=== PATIENT | male | born 1945 | race Caucasian/White ===

== ENCOUNTER 2019-06-06 18:46 | Inpatient (IN) | payer MEDICARE, MEDICAID ==
[~2019-06-06] VITALS: Ht 162.6 cm; Wt 77.5 kg
--- NOTE | 2019-06-06 20:26 | NUR ---
RECEIVED REPORT FROM PANTERA KISER, ASSUMING CARE NOW. AWAITING LAB DRAW AND RESULTS AT THIS TIME
[2019-06-06 20:51] LABS: ALANINE AMINOTRANSFERASE 27 U/L (12-78); ALBUMIN 3.4 g/dL (3.4-5.0); ANION GAP 5 mmol/L (5-15); BASOPHILS # (AUTO) 0.03 x10^3/uL (0-0.1); BASOPHILS % (AUTO) 0 % (0-1); CALCIUM 9.1 mg/dL (8.5-10.1); CHLORIDE 107 mmol/L (98-107); CREATININE 0.99 mg/dL (0.7-1.3); EOSINOPHILS # (AUTO) 0.09 x10^3/uL (0-0.4); EOSINOPHILS % (AUTO) 1 % (1-7); LYMPHOCYTES # (AUTO) 1.71 x10^3/uL (1-3.4); LYMPHOCYTES % (AUTO) 15 % (22-44); MD NO; MEAN CORPUSCULAR HEMOGLOBIN 30.4 pg (27.5-34.5); MEAN CORPUSCULAR HGB CONC 33.4 g/dL (33.2-36.2); MEAN CORPUSCULAR VOLUME 91.1 fL (81-97); MEAN PLATELET VOLUME 8.9 fL (7.4-10.4); MONOCYTES # (AUTO) 0.74 x10^3/uL (0.2-0.8); MONOCYTES % (AUTO) 7 % (2-9); NEUTROPHILS # (AUTO) 8.51 x10^3/uL (1.8-6.8); NEUTROPHILS % (AUTO) 77 % (42-75); PLATELET COUNT 292 x10^3/uL (130-400); RED BLOOD COUNT 5.97 x10^6/uL (4.38-5.82); RED CELL DISTRIBUTION WIDTH 15.3 % (9.4-14.8)
[2019-06-06 20:55] LABS: ALKALINE PHOSPHATASE 128 U/L (45-117); BILIRUBIN,TOTAL 0.8 mg/dL (0.2-1.0); TOTAL PROTEIN 7.3 g/dL (6.4-8.2)
--- NOTE | 2019-06-06 20:57 | NUR ---
PA AT BEDSIDE FOR ASSESSMENT
[2019-06-06] MEDS ORDERED: METHOCARBAMOL 750 MG TABLET ONE (21:17)
--- NOTE | 2019-06-06 21:29 | NUR ---
PT MEDICATED PER MAR. AWAITING DISPO AT THIS TIME. VSS. CALL LIGHT WITHIN REACH
[2019-06-06] MEDS ORDERED: METHOCARBAMOL 750 MG TABLET PO ONE (21:30)
[2019-06-06] MEDS ORDERED: CEFTRIAXONE PMX 1GM/50ML 50 ML IVPB ONE (22:30)
[2019-06-06] MEDS ORDERED: VANCOMYCIN PER PHARMACY MC ONE (22:30)
[2019-06-06] MEDS ORDERED: [UNRECOGNIZED DRUG - REMARK] MC SCH (23:00)
[2019-06-06] MEDS ORDERED: CEFTRIAXONE PMX 1GM/50ML 50 ML ONE (23:01)
--- NOTE | 2019-06-06 23:04 | NUR ---
ABX STARTED, VERIFED WITH PA THAT NO BLOOD CULTURES NEEDED PRIOR TO ADMIN. REPORT GIVEN TO PANTERA KISER
--- NOTE | 2019-06-06 23:08 | NUR ---
Received report from [id number] patient care.
[2019-06-06] MEDS ORDERED: MORPHINE SULFATE 4 MG/ML, 1ML IVPush PRN (23:30)
[2019-06-06] MEDS ORDERED: PLEASE ENTER WEIGHT MC SCH (23:30)
[2019-06-06] MEDS ORDERED: ONDANSETRON 2MG/ML, 2ML IVPush PRN (23:30)
[2019-06-06] MEDS ORDERED: VANCOMYCIN 1,600 MG in SODIUM CHLORIDE 0.9% 250 ML IV ONE (23:30)
--- NOTE | 2019-06-06 23:58 | NUR ---
RN called report to medical RN Jyoti. Reviewed patients current complaint of increased swelling and redness in legs bilaterally. Reviewed patients history of reduced mobility in lower extremeties from history of Polio. Also reviewed interventions performed in the Emergency Room including initiation of peripheral intravenous access, and antibiotics completed in the emergency room. Plan of care for further antiobiotics reviewed and also reviewed orders received to bypass blood cultures due to pertinent white blood cell count of (11.1)
[2019-06-07 00:19] VITALS: BP 162/94
[2019-06-07] MEDS ORDERED: VANCOMYCIN PER PHARMACY MC PRN (00:30)
[2019-06-07] MEDS ORDERED: POLYETHYLENE GLYCOL 17 GM PACKET PO PRN (00:30)
[2019-06-07] MEDS: NICOTINE 14MG/24 HR PATCH.TD24 TD SCH (00:30)
[2019-06-07] MEDS ORDERED: OXYcodone IR 5MG TABLET PO PRN ×2 (00:30→08:30)
[2019-06-07] MEDS ORDERED: ONDANSETRON ODT 4 MG PO PRN (00:30)
[2019-06-07] MEDS ORDERED: ACETAMINOPHEN 325 MG TABLET PO PRN ×2 (00:30→08:30)
[2019-06-07] MEDS ORDERED: BISACODYL 10 MG SUPP PR PRN (00:30)
[2019-06-07] MEDS: AQUAPHOR NATURAL HEALING OINT 50GM TP SCH ×4 (00:30→20:18)
[2019-06-07] MEDS: FUROSEMIDE 20 MG/2 ML IV SCH ×2 (01:30→07:42)
[2019-06-07] MEDS ORDERED: PHARMACOKINETIC MONITORING MC PRN (01:30)
[2019-06-07] MEDS: HEPARIN 5,000 UNITS/ML, 1ML SQ SCH ×3 (01:31→16:19)
[2019-06-07] MEDS: AMPICILLIN/SULBACTAM 3 GM in SODIUM CHLORIDE 0.9% 100 ML IV SCH ×4 (01:43→20:18)
[2019-06-07] MEDS ORDERED: VANCOMYCIN 1,600 MG in SODIUM CHLORIDE 0.9% 250 ML IV ONE (02:00)
[2019-06-07 05:44] LABS: BASOPHILS # (AUTO) 0.03 x10^3/uL (0-0.1); BASOPHILS % (AUTO) 0 % (0-1); EOSINOPHILS # (AUTO) 0.05 x10^3/uL (0-0.4); EOSINOPHILS % (AUTO) 1 % (1-7); LYMPHOCYTES # (AUTO) 1.34 x10^3/uL (1-3.4); LYMPHOCYTES % (AUTO) 13 % (22-44); MD NO; MEAN CORPUSCULAR HEMOGLOBIN 30.3 pg (27.5-34.5); MEAN CORPUSCULAR VOLUME 91.7 fL (81-97); MEAN PLATELET VOLUME 9.2 fL (7.4-10.4); MONOCYTES # (AUTO) 0.69 x10^3/uL (0.2-0.8); MONOCYTES % (AUTO) 7 % (2-9); NEUTROPHILS # (AUTO) 8.15 x10^3/uL (1.8-6.8); NEUTROPHILS % (AUTO) 80 % (42-75); PLATELET COUNT 283 x10^3/uL (130-400); RED BLOOD COUNT 5.67 x10^6/uL (4.38-5.82); RED CELL DISTRIBUTION WIDTH 15.7 % (9.4-14.8)
[2019-06-07 05:49] LABS: ANION GAP 4 mmol/L (5-15); CALCIUM 8.6 mg/dL (8.5-10.1); CHLORIDE 109 mmol/L (98-107); CREATININE 1.04 mg/dL (0.7-1.3)
[2019-06-07] MEDS: SENNA/DOCUSATE TABLET PO SCH (07:42)
[2019-06-07] MEDS: SODIUM CHLORIDE FLUSH 10ML SYR IVF SCH ×2 (07:43→20:18)
[2019-06-07 08:03] VITALS: BP 135/80
[2019-06-07] MEDS: FUROSEMIDE 40 MG TABLET PO SCH (08:37)
[2019-06-07] MEDS: CARVEDILOL 6.25 MG TABLET PO SCH ×2 (09:29→17:33)
[2019-06-07 13:12] VITALS: BP 116/67
[2019-06-07 21:04] VITALS: BP 117/66
[2019-06-08] MEDS: HEPARIN 5,000 UNITS/ML, 1ML SQ SCH ×3 (00:03→16:54)
[2019-06-08] MEDS: NICOTINE 14MG/24 HR PATCH.TD24 TD SCH (00:07)
[2019-06-08 02:00] VITALS: BP 133/79
[2019-06-08] MEDS: VANCOMYCIN 1,600 MG in SODIUM CHLORIDE 0.9% 250 ML IV SCH (02:10)
[2019-06-08] MEDS: CARVEDILOL 6.25 MG TABLET PO SCH ×2 (05:22→16:55)
[2019-06-08 06:03] LABS: BASOPHILS # (AUTO) 0.03 x10^3/uL (0-0.1); BASOPHILS % (AUTO) 0 % (0-1); EOSINOPHILS # (AUTO) 0.09 x10^3/uL (0-0.4); EOSINOPHILS % (AUTO) 1 % (1-7); LYMPHOCYTES # (AUTO) 2.56 x10^3/uL (1-3.4); LYMPHOCYTES % (AUTO) 29 % (22-44); MD NO; MEAN CORPUSCULAR HEMOGLOBIN 30.4 pg (27.5-34.5); MEAN CORPUSCULAR HGB CONC 33.3 g/dL (33.2-36.2); MEAN CORPUSCULAR VOLUME 91.1 fL (81-97); MEAN PLATELET VOLUME 8.7 fL (7.4-10.4); MONOCYTES # (AUTO) 0.96 x10^3/uL (0.2-0.8); MONOCYTES % (AUTO) 11 % (2-9); NEUTROPHILS # (AUTO) 5.06 x10^3/uL (1.8-6.8); NEUTROPHILS % (AUTO) 58 % (42-75); PLATELET COUNT 237 x10^3/uL (130-400); RED BLOOD COUNT 5.08 x10^6/uL (4.38-5.82); RED CELL DISTRIBUTION WIDTH 15.9 % (9.4-14.8)
[2019-06-08 06:14] LABS: ANION GAP 6 mmol/L (5-15); CALCIUM 8.3 mg/dL (8.5-10.1); CHLORIDE 112 mmol/L (98-107)
[2019-06-08 06:17] LABS: CREATININE 0.93 mg/dL (0.7-1.3)
[2019-06-08] MEDS: AMPICILLIN/SULBACTAM 3 GM in SODIUM CHLORIDE 0.9% 100 ML IV SCH ×3 (07:32→19:45)
[2019-06-08] MEDS ORDERED: OXYcodone IR 5MG TABLET PO PRN (08:30)
[2019-06-08] MEDS: SENNA/DOCUSATE TABLET PO SCH (08:45)
[2019-06-08] MEDS: FUROSEMIDE 40 MG TABLET PO SCH (08:47)
[2019-06-08] MEDS: AQUAPHOR NATURAL HEALING OINT 50GM TP SCH ×3 (08:50→19:45)
[2019-06-08] MEDS: SODIUM CHLORIDE FLUSH 10ML SYR IVF SCH ×2 (09:00→19:45)
[2019-06-08 09:28] VITALS: BP 128/70
[2019-06-08 15:01] VITALS: BP 134/74
[2019-06-08 19:03] VITALS: BP 141/74
[2019-06-09] MEDS: HEPARIN 5,000 UNITS/ML, 1ML SQ SCH ×4 (00:30→23:57)
[2019-06-09 00:56] VITALS: BP 131/85
[2019-06-09] MEDS: AMPICILLIN/SULBACTAM 3 GM in SODIUM CHLORIDE 0.9% 100 ML IV SCH ×4 (01:01→19:23)
[2019-06-09] MEDS: VANCOMYCIN 1,600 MG in SODIUM CHLORIDE 0.9% 250 ML IV SCH (02:14)
[2019-06-09] MEDS: CARVEDILOL 6.25 MG TABLET PO SCH ×2 (05:08→17:31)
[2019-06-09 05:50] LABS: BASOPHILS # (AUTO) 0.03 x10^3/uL (0-0.1); BASOPHILS % (AUTO) 0 % (0-1); EOSINOPHILS # (AUTO) 0.13 x10^3/uL (0-0.4); EOSINOPHILS % (AUTO) 1 % (1-7); LYMPHOCYTES % (AUTO) 23 % (22-44); MD NO; MEAN CORPUSCULAR HEMOGLOBIN 30.3 pg (27.5-34.5); MEAN CORPUSCULAR HGB CONC 33.2 g/dL (33.2-36.2); MEAN CORPUSCULAR VOLUME 91.5 fL (81-97); MEAN PLATELET VOLUME 8.9 fL (7.4-10.4); MONOCYTES % (AUTO) 9 % (2-9); NEUTROPHILS # (AUTO) 6.38 x10^3/uL (1.8-6.8); NEUTROPHILS % (AUTO) 66 % (42-75); PLATELET COUNT 257 x10^3/uL (130-400); RED BLOOD COUNT 5.29 x10^6/uL (4.38-5.82); RED CELL DISTRIBUTION WIDTH 15.8 % (9.4-14.8)
[2019-06-09] MEDS: FUROSEMIDE 40 MG TABLET PO SCH (08:38)
[2019-06-09] MEDS: SODIUM CHLORIDE FLUSH 10ML SYR IVF SCH ×2 (08:38→19:23)
[2019-06-09] MEDS: SENNA/DOCUSATE TABLET PO SCH (08:39)
[2019-06-09 09:28] VITALS: BP 168/93
[2019-06-09] MEDS: AQUAPHOR NATURAL HEALING OINT 50GM TP SCH ×3 (10:55→19:23)
[2019-06-09 15:23] VITALS: BP 144/81
[2019-06-09 20:17] VITALS: BP 155/93
[2019-06-10] MEDS: AMPICILLIN/SULBACTAM 3 GM in SODIUM CHLORIDE 0.9% 100 ML IV SCH ×3 (01:30→13:06)
[2019-06-10 01:35] VITALS: BP 145/89
[2019-06-10] MEDS: VANCOMYCIN 1,600 MG in SODIUM CHLORIDE 0.9% 250 ML IV SCH (02:11)
[2019-06-10] MEDS: CARVEDILOL 6.25 MG TABLET PO SCH (05:13)
[2019-06-10 08:38] VITALS: BP 164/90
[2019-06-10] MEDS: SENNA/DOCUSATE TABLET PO SCH (08:42)
[2019-06-10] MEDS: HEPARIN 5,000 UNITS/ML, 1ML SQ SCH ×2 (08:42→16:23)
[2019-06-10] MEDS: SODIUM CHLORIDE FLUSH 10ML SYR IVF SCH (08:42)
[2019-06-10] MEDS: FUROSEMIDE 40 MG TABLET PO SCH (08:43)
[2019-06-10] MEDS: AQUAPHOR NATURAL HEALING OINT 50GM TP SCH ×2 (08:43→16:23)
[2019-06-10] MEDS ORDERED: SENN-193 PO (15:46)
[2019-06-10] MEDS ORDERED: FURO40TA6 PO (15:46)
[2019-06-10] MEDS ORDERED: CEPH-368 PO (15:46)
[2019-06-10] MEDS ORDERED: CARV6.2512 PO (15:46)
[2019-06-10] MEDS ORDERED: DOXY100T51 PO (15:46)
[2019-06-10] MEDS ORDERED: ACET325T26 PO (15:50)
[2019-06-10] MEDS ORDERED: NAPR250T6 PO (15:52)
[2019-06-10 16:12] VITALS: BP 132/65
== END 2019-06-10 17:37 | DRG 603 ==
LOC: ED 23:22 → EDIP 23:51 → 3N 06-07
PROVIDERS: ADMIT Internal Medicine; ATTEND Hospitalist
DX: L03.115 Cellulitis of right lower limb (principal); L03.116 Cellulitis of left lower limb; G14 Postpolio syndrome; F17.210 Nicotine dependence, cigarettes, uncomplicated; R60.0 Localized edema; Z59.0 Homelessness; I11.9 Hypertensive heart disease without heart failure; Z99.3 Dependence on wheelchair
CPT/HCPCS: 36415; 71045; 80048; 80053; 80202; 83880; 85025; 93005; 93306; 93922; 93970; 99285; G0378; J0295; J0696; J1644; J3370; J1940; J7050

== ENCOUNTER 2019-08-04 00:16 | Inpatient (IN) | payer MEDICARE, MEDICAID ==
[~2019-08-04] VITALS: Ht 162.6 cm; Wt 73.7 kg
[~2019-08-04 00:16] MED LIST: ACET325T26 PO; CARV6.2512 PO; CEPH-368 PO; DOXY100T51 PO; FURO40TA6 PO; NAPR250T6 PO; SENN-193 PO
[2019-08-04 00:54] LABS: BASOPHILS # (AUTO) 0.02 x10^3/uL (0-0.1); BASOPHILS % (AUTO) 0 % (0-1); EOSINOPHILS # (AUTO) 0.11 x10^3/uL (0-0.4); EOSINOPHILS % (AUTO) 1 % (1-7); LYMPHOCYTES # (AUTO) 2.25 x10^3/uL (1-3.4); LYMPHOCYTES % (AUTO) 27 % (22-44); MD NO; MEAN CORPUSCULAR HEMOGLOBIN 30.7 pg (27.5-34.5); MEAN PLATELET VOLUME 9.2 fL (7.4-10.4); MONOCYTES # (AUTO) 0.67 x10^3/uL (0.2-0.8); MONOCYTES % (AUTO) 8 % (2-9); NEUTROPHILS # (AUTO) 5.46 x10^3/uL (1.8-6.8); NEUTROPHILS % (AUTO) 64 % (42-75); PLATELET COUNT 269 x10^3/uL (130-400); RED BLOOD COUNT 5.93 x10^6/uL (4.38-5.82); RED CELL DISTRIBUTION WIDTH 16.1 % (9.4-14.8)
--- NOTE | 2019-08-04 00:54 | NUR ---
PT BIB [facility] FOR BILATERAL LE EDEMA X 1 YEAR AND GETTING WORSE OVER LAST MONTH. HX OF POLIO AND HTN. LEGS ARE RED AND PAINFUL AND PT UNABLE TO MOVE FROM WHEELCHAIR AND HAS CAUSED HIM TO FALL MORE OFTEN. VSS. LAB AT BEDSIDE FOR BLOOD. CALL LIGHT IN REACH
[2019-08-04 01:00] LABS: ALANINE AMINOTRANSFERASE 25 U/L (12-78); ALBUMIN 3.6 g/dL (3.4-5.0); ANION GAP 6 mmol/L (5-15); C-REACTIVE PROTEIN, QUANT 0.35 mg/dL (0.02-0.49); CALCIUM 9.7 mg/dL (8.5-10.1); CHLORIDE 109 mmol/L (98-107); CREATININE 0.96 mg/dL (0.7-1.3)
[2019-08-04 01:02] LABS: ALKALINE PHOSPHATASE 110 U/L (45-117); BILIRUBIN,TOTAL 0.8 mg/dL (0.2-1.0); TOTAL PROTEIN 7.2 g/dL (6.4-8.2)
[2019-08-04] MEDS ORDERED: POTA10TA PO (01:04)
[2019-08-04] MEDS ORDERED: FURO-93 PO (01:04)
[2019-08-04] MEDS ORDERED: LISI-167 PO (01:04)
--- NOTE | 2019-08-04 01:05 | NUR ---
US AT BEDSIDE
[2019-08-04] MEDS ORDERED: CEFAZOLIN PMX 1GM/50ML 50 ML IV ONE (01:30)
[2019-08-04] MEDS ORDERED: CEFAZOLIN PMX 1GM/50ML 50 ML ONE (01:32)
[2019-08-04 01:38] LABS: HCT (SEDRATE) 55.2 % (39.2-51.8)
--- NOTE | 2019-08-04 01:38 | NUR ---
PT VSS AND UPDATED IN EMR. PT MEDICATED PER JUN.
--- NOTE | 2019-08-04 03:03 | NUR ---
TASK RN KEHINDE CALLED REPORT OF PT TO FLOOR RN. PT TRANSPORTED BY TECH TO FLOOR AT THIS TIME. PT DENIES ANY OTHER NEEDS PERTAINING TO HIS ER VISIT PRIOR TO TRANSPORT.
[2019-08-04 03:15] VITALS: BP 147/78
[2019-08-04] MEDS ORDERED: hydrALAzine 20 MG/ML, 1ML IVPush PRN (04:00)
[2019-08-04] MEDS ORDERED: ACETAMINOPHEN 325 MG TABLET PO PRN (04:00)
[2019-08-04] MEDS ORDERED: ONDANSETRON 2MG/ML, 2ML IVPush PRN (04:00)
[2019-08-04] MEDS: HYDROcodone/APAP 5/325 TABLET PO PRN ×3 (04:01→18:10)
[2019-08-04 06:56] VITALS: BP 132/82
[2019-08-04] MEDS: POTASSIUM CHLORIDE 10 MEQ TABLET.ER PO SCH ×2 (08:12→19:46)
[2019-08-04] MEDS: LISINOPRIL 10 MG TABLET PO SCH (08:12)
[2019-08-04] MEDS ORDERED: FUROSEMIDE 40 MG TABLET PO SCH (09:00)
[2019-08-04] MEDS ORDERED: CLINDAMYCIN PMX 600MG/50ML 50 ML IV SCH (12:00)
[2019-08-04 12:05] VITALS: BP 140/74
[2019-08-04] MEDS: AMPICILLIN/SULBACTAM 1,500 MG in SODIUM CHLORIDE 0.9% 50 ML IV SCH ×2 (15:16→19:46)
[2019-08-04] MEDS: FUROSEMIDE 40 MG/4 ML IV SCH (17:18)
[2019-08-04 19:03] VITALS: BP 124/66
[2019-08-05 00:51] VITALS: BP 119/68
[2019-08-05] MEDS: AMPICILLIN/SULBACTAM 1,500 MG in SODIUM CHLORIDE 0.9% 50 ML IV SCH ×4 (01:29→20:58)
[2019-08-05 05:15] LABS: BASOPHILS # (AUTO) 0.04 x10^3/uL (0-0.1); BASOPHILS % (AUTO) 0 % (0-1); EOSINOPHILS # (AUTO) 0.11 x10^3/uL (0-0.4); EOSINOPHILS % (AUTO) 1 % (1-7); LYMPHOCYTES % (AUTO) 25 % (22-44); MD NO; MEAN CORPUSCULAR HEMOGLOBIN 30.7 pg (27.5-34.5); MEAN CORPUSCULAR VOLUME 93.1 fL (81-97); MEAN PLATELET VOLUME 8.7 fL (7.4-10.4); MONOCYTES % (AUTO) 8 % (2-9); NEUTROPHILS # (AUTO) 6.08 x10^3/uL (1.8-6.8); NEUTROPHILS % (AUTO) 66 % (42-75); PLATELET COUNT 245 x10^3/uL (130-400); RED BLOOD COUNT 5.28 x10^6/uL (4.38-5.82); RED CELL DISTRIBUTION WIDTH 15.9 % (9.4-14.8)
[2019-08-05 05:20] LABS: ANION GAP 5 mmol/L (5-15); CALCIUM 8.6 mg/dL (8.5-10.1); CHLORIDE 106 mmol/L (98-107); CREATININE 1.16 mg/dL (0.7-1.3)
[2019-08-05 07:13] VITALS: BP 109/67
[2019-08-05] MEDS: FUROSEMIDE 40 MG/4 ML IV SCH ×2 (07:49→17:32)
[2019-08-05] MEDS: POTASSIUM CHLORIDE 10 MEQ TABLET.ER PO SCH ×2 (07:50→21:29)
[2019-08-05] MEDS: LISINOPRIL 10 MG TABLET PO SCH (07:50)
[2019-08-05] MEDS: HYDROcodone/APAP 5/325 TABLET PO PRN (07:58)
[2019-08-05] MEDS: ENOXAPARIN 40 MG/0.4 ML SQ SCH (09:07)
[2019-08-05 13:59] VITALS: BP 110/67
--- NOTE | 2019-08-05 18:06 | NUR ---
Rec: support with IADLs at time of discharge. Addendum: 08/05/19 at 1807 by Etta WEST Amended: Links added.
[2019-08-05 20:15] VITALS: BP 114/69
[2019-08-06 03:03] VITALS: BP 107/68
[2019-08-06] MEDS: AMPICILLIN/SULBACTAM 1,500 MG in SODIUM CHLORIDE 0.9% 50 ML IV SCH ×4 (03:09→21:22)
[2019-08-06 05:16] LABS: BASOPHILS # (AUTO) 0.03 x10^3/uL (0-0.1); BASOPHILS % (AUTO) 0 % (0-1); EOSINOPHILS # (AUTO) 0.11 x10^3/uL (0-0.4); EOSINOPHILS % (AUTO) 1 % (1-7); LYMPHOCYTES # (AUTO) 2.09 x10^3/uL (1-3.4); LYMPHOCYTES % (AUTO) 24 % (22-44); MD NO; MEAN CORPUSCULAR HGB CONC 33.5 g/dL (33.2-36.2); MEAN CORPUSCULAR VOLUME 92.7 fL (81-97); MEAN PLATELET VOLUME 9.2 fL (7.4-10.4); MONOCYTES # (AUTO) 0.71 x10^3/uL (0.2-0.8); MONOCYTES % (AUTO) 8 % (2-9); NEUTROPHILS # (AUTO) 5.78 x10^3/uL (1.8-6.8); NEUTROPHILS % (AUTO) 66 % (42-75); PLATELET COUNT 266 x10^3/uL (130-400); RED BLOOD COUNT 5.34 x10^6/uL (4.38-5.82); RED CELL DISTRIBUTION WIDTH 16.1 % (9.4-14.8)
[2019-08-06 05:28] LABS: CHLORIDE 106 mmol/L (98-107)
[2019-08-06 05:42] LABS: ALANINE AMINOTRANSFERASE 19 U/L (12-78); ALBUMIN 2.9 g/dL (3.4-5.0); ALKALINE PHOSPHATASE 86 U/L (45-117); ANION GAP 6 mmol/L (5-15); BILIRUBIN,TOTAL 0.8 mg/dL (0.2-1.0); CALCIUM 8.6 mg/dL (8.5-10.1); CREATININE 1.12 mg/dL (0.7-1.3); TOTAL PROTEIN 6.3 g/dL (6.4-8.2)
[2019-08-06 07:02] VITALS: BP 115/60
[2019-08-06] MEDS: FUROSEMIDE 40 MG/4 ML IV SCH ×2 (08:12→17:27)
[2019-08-06] MEDS: ENOXAPARIN 40 MG/0.4 ML SQ SCH (10:05)
[2019-08-06] MEDS: POTASSIUM CHLORIDE 10 MEQ TABLET.ER PO SCH ×2 (10:06→21:22)
[2019-08-06 13:25] VITALS: BP 107/67
[2019-08-06 19:36] VITALS: BP 111/70
[2019-08-07 01:23] VITALS: BP 112/73
[2019-08-07] MEDS: AMPICILLIN/SULBACTAM 1,500 MG in SODIUM CHLORIDE 0.9% 50 ML IV SCH ×2 (02:59→11:00)
[2019-08-07 05:30] LABS: ALBUMIN 2.8 g/dL (3.4-5.0); ANION GAP 7 mmol/L (5-15); CALCIUM 8.7 mg/dL (8.5-10.1); CHLORIDE 106 mmol/L (98-107)
[2019-08-07 05:36] LABS: ALANINE AMINOTRANSFERASE 30 U/L (12-78); ALKALINE PHOSPHATASE 85 U/L (45-117); BILIRUBIN,TOTAL 0.8 mg/dL (0.2-1.0); CREATININE 1.22 mg/dL (0.7-1.3); TOTAL PROTEIN 6.5 g/dL (6.4-8.2)
[2019-08-07 07:02] VITALS: BP 122/71
[2019-08-07] MEDS: FUROSEMIDE 40 MG/4 ML IV SCH ×2 (07:30→11:26)
[2019-08-07] MEDS ORDERED: AMOX1TAB64 PO (10:57)
[2019-08-07] MEDS ORDERED: DOXY100C2 PO (10:57)
[2019-08-07] MEDS ORDERED: ACET325T26 PO (10:57)
[2019-08-07] MEDS ORDERED: FURO10VI37 IV (10:57)
[2019-08-07] MEDS ORDERED: FURO40TA6 PO (11:03)
[2019-08-07] MEDS ORDERED: POTA10TA5 PO (11:04)
[2019-08-07] MEDS: ENOXAPARIN 40 MG/0.4 ML SQ SCH ×2 (11:25→11:27)
[2019-08-07] MEDS: POTASSIUM CHLORIDE 10 MEQ TABLET.ER PO SCH (11:26)
[2019-08-07 13:34] VITALS: BP 127/75
== END 2019-08-07 15:29 | DRG 603 ==
LOC: ED 00:44 → EDIP 02:34 → 3N 03:02
PROVIDERS: ADMIT Internal Medicine; ATTEND Internal Medicine
DX: L03.115 Cellulitis of right lower limb (principal); L03.116 Cellulitis of left lower limb; G14 Postpolio syndrome; I10 Essential (primary) hypertension; R26.2 Difficulty in walking, not elsewhere classified; Z60.2 Problems related to living alone; D75.1 Secondary polycythemia; Z72.0 Tobacco use; Z79.899 Other long term (current) drug therapy; Z99.3 Dependence on wheelchair
CPT/HCPCS: 36415; 80048; 80053; 83036; 83605; 83880; 84145; 85025; 85651; 86140; 87040; 93970; 96365; G0378; J0690; J1650; J1940; 92523-GN; J0295

== ENCOUNTER 2019-10-03 18:48 | Inpatient (IN) | payer MEDICARE, MEDICAID ==
[~2019-10-03] VITALS: Ht 162.6 cm; Wt 71.0 kg
[~2019-10-03 18:48] MED LIST changes: +AMOX1TAB64 PO; +DOXY100C2 PO; +FURO-93 PO; +FURO10VI37 IV; +LISI-167 PO; +POTA10TA PO; +POTA10TA5 PO
--- NOTE | 2019-10-03 18:55 | NUR ---
THIS PT WAS BIB [facility] AFTER HIS HOME HEALTH NURSE NOTED INCREASED SWELLING BILATERALLY IN THE LE. THIS WAS AT 1430. THE PT CALLED EMS AT 1830. THIS PT IS COMING FROM HOME WHERE HE LIVES WITH HIS NEICE. HE IS WHEELCHAIR BOUND FROM A HX OF POLIO WITH LEFT SIDE WEAKNESS. CURRENLY VSS, NO SIGNS OF DISTRESS, DENIES PAIN, ALL NEEDS MET AT THIS TIME.
--- NOTE | 2019-10-03 18:58 | NUR ---
ERP TO BEDSIDE.
[2019-10-03 19:22] LABS: BASOPHILS # (AUTO) 0.02 x10^3/uL (0-0.1); BASOPHILS % (AUTO) 0 % (0-1); EOSINOPHILS # (AUTO) 0.06 x10^3/uL (0-0.4); EOSINOPHILS % (AUTO) 1 % (1-7); LYMPHOCYTES # (AUTO) 1.96 x10^3/uL (1-3.4); LYMPHOCYTES % (AUTO) 23 % (22-44); MD NO; MEAN CORPUSCULAR HEMOGLOBIN 30.7 pg (27.5-34.5); MEAN CORPUSCULAR HGB CONC 32.6 g/dL (33.2-36.2); MEAN CORPUSCULAR VOLUME 94.4 fL (81-97); MEAN PLATELET VOLUME 8.8 fL (7.4-10.4); MONOCYTES # (AUTO) 0.48 x10^3/uL (0.2-0.8); MONOCYTES % (AUTO) 6 % (2-9); NEUTROPHILS % (AUTO) 71 % (42-75); PLATELET COUNT 252 x10^3/uL (130-400); RED BLOOD COUNT 6.33 x10^6/uL (4.38-5.82); RED CELL DISTRIBUTION WIDTH 15.3 % (9.4-14.8)
[2019-10-03] MEDS ORDERED: SODIUM CHLORIDE FLUSH 10ML SYR IVF ONE (19:30)
--- NOTE | 2019-10-03 19:30 | NUR ---
PT TO IMAGING.
[2019-10-03 19:33] LABS: ALBUMIN 3.9 g/dL (3.4-5.0); ANION GAP 4 mmol/L (5-15); CALCIUM 8.9 mg/dL (8.5-10.1); CHLORIDE 109 mmol/L (98-107); CREATININE 0.97 mg/dL (0.7-1.3)
--- NOTE | 2019-10-03 20:09 | NUR ---
PT BACK FROM IMAGING, NO SIGNS OF DISTRESS, NO COMPLAINTS.
--- NOTE | 2019-10-03 21:15 | NUR ---
PT SITTING IN BED, CONVERSING WITH REGISTRATIONS, NO SIGNS OF DISTRESS, ALL NEEDS MET AT THIS TIME. ERP HAS BEEN TO BEDSIDE TO UPDATE PT ON POC.
--- NOTE | 2019-10-03 21:20 | NUR ---
ADMITTING MD TO BEDSIDE.
[2019-10-03] MEDS ORDERED: TRAZODONE 50MG TABLET PO PRN (21:30)
[2019-10-03] MEDS ORDERED: hydrALAzine 20 MG/ML, 1ML IVPush PRN (21:30)
[2019-10-03] MEDS ORDERED: ONDANSETRON 2MG/ML, 2ML IVPush PRN (21:30)
[2019-10-03] MEDS ORDERED: ACETAMINOPHEN 325 MG TABLET PO PRN (21:30)
--- NOTE | 2019-10-03 21:37 | NUR ---
REPORT GIVEN TO RASHEL AVENDANO.
[2019-10-03 22:24] VITALS: BP 147/87
[2019-10-04 01:06] VITALS: BP 131/79
[2019-10-04 07:25] VITALS: BP 125/75
[2019-10-04] MEDS ORDERED: SENNA/DOCUSATE TABLET PO SCH (09:00)
[2019-10-04] MEDS ORDERED: FUROSEMIDE 40 MG TABLET PO SCH (09:00)
[2019-10-04] MEDS ORDERED: POTASSIUM CHLORIDE 10 MEQ TABLET.ER PO SCH (09:00)
[2019-10-04 14:56] VITALS: BP 122/68
== END 2019-10-04 17:26 | DRG 948 ==
LOC: ED 21:18 → EDIP 21:50 → 3N 22:04
PROVIDERS: ADMIT Family Medicine; ATTEND Family Medicine
DX: R53.1 Weakness (principal); I50.32 Chronic diastolic (congestive) heart failure; R53.81 Other malaise; F17.210 Nicotine dependence, cigarettes, uncomplicated; I11.0 Hypertensive heart disease with heart failure; G14 Postpolio syndrome; Z99.3 Dependence on wheelchair
CPT/HCPCS: 36415; 80048; 82040; 83880; 85025; 93970; G0378

== ENCOUNTER 2019-11-05 12:34 | Inpatient (IN) | payer MEDICARE, MEDICAID ==
[~2019-11-05] VITALS: Ht 162.6 cm; Wt 73.1 kg
[2019-11-05] MEDS ORDERED: SODIUM CHLORIDE FLUSH 10ML SYR IVF ONE ×2 (13:00→18:00)
[2019-11-05 13:24] LABS: BASOPHILS # (AUTO) 0.01 x10^3/uL (0-0.1); BASOPHILS % (AUTO) 0 % (0-1); EOSINOPHILS # (AUTO) 0.01 x10^3/uL (0-0.4); EOSINOPHILS % (AUTO) 0 % (1-7); LYMPHOCYTES # (AUTO) 1.18 x10^3/uL (1-3.4); LYMPHOCYTES % (AUTO) 11 % (22-44); MD NO; MEAN CORPUSCULAR HEMOGLOBIN 30.8 pg (27.5-34.5); MEAN CORPUSCULAR HGB CONC 33.1 g/dL (33.2-36.2); MEAN PLATELET VOLUME 8.7 fL (7.4-10.4); MONOCYTES # (AUTO) 0.63 x10^3/uL (0.2-0.8); MONOCYTES % (AUTO) 6 % (2-9); NEUTROPHILS # (AUTO) 8.85 x10^3/uL (1.8-6.8); NEUTROPHILS % (AUTO) 83 % (42-75); PLATELET COUNT 276 x10^3/uL (130-400); RED BLOOD COUNT 6.33 x10^6/uL (4.38-5.82); RED CELL DISTRIBUTION WIDTH 15.1 % (9.4-14.8)
[2019-11-05 13:33] LABS: ALBUMIN 3.8 g/dL (3.4-5.0); ANION GAP 6 mmol/L (5-15); CALCIUM 9.2 mg/dL (8.5-10.1); CHLORIDE 111 mmol/L (98-107)
[2019-11-05 13:38] LABS: ALANINE AMINOTRANSFERASE 22 U/L (12-78); ALKALINE PHOSPHATASE 100 U/L (45-117); BILIRUBIN,TOTAL 1.5 mg/dL (0.2-1.0); TOTAL PROTEIN 7.4 g/dL (6.4-8.2); TROPONIN I < 0.015 ng/mL (0.000-0.045)
--- NOTE | 2019-11-05 15:57 | NUR ---
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 EZEKIEL
--- NOTE | 2019-11-05 16:59 | NUR ---
assumed care of pt. as
--- NOTE | 2019-11-05 17:14 | NUR ---
pt resting in bed. given urinal. vss. 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 had home health w/ lasix and leg wraps which resolved swelling. up for recheck. call siri in reach. as
--- NOTE | 2019-11-05 18:16 | NUR ---
piv est. food ordered. vss. as
--- NOTE | 2019-11-05 19:53 | NUR ---
report to nelida prasad. as
[2019-11-05] MEDS ORDERED: GUAIFENESIN/DM 200-20MG, 10ML UDC PO PRN (20:30)
[2019-11-05] MEDS ORDERED: ACETAMINOPHEN 325 MG TABLET PO PRN (20:30)
[2019-11-05] MEDS ORDERED: hydrALAzine 20 MG/ML, 1ML IVPush PRN (20:30)
[2019-11-05] MEDS ORDERED: ONDANSETRON 2MG/ML, 2ML IVPush PRN (20:30)
[2019-11-05] MEDS ORDERED: morphine SULFATE 10 MG/ML, 1ML IVPush PRN (20:30)
[2019-11-05] MEDS ORDERED: FUROSEMIDE 40 MG/4 ML IV ONE (20:30)
[2019-11-05] MEDS ORDERED: TEMAZEPAM 15 MG CAPSULE PO PRN (20:30)
[2019-11-05] MEDS ORDERED: METHOCARBAMOL 500 MG TABLET PO PRN (20:30)
[2019-11-05 20:40] VITALS: BP 138/77
[2019-11-05] MEDS ORDERED: FUROSEMIDE 40 MG TABLET PO SCH (21:00)
[2019-11-05] MEDS: FAMOTIDINE 20 MG TABLET PO SCH (21:00)
[2019-11-05] MEDS ORDERED: FAMOTIDINE 40 MG TABLET ONE (21:12)
[2019-11-05] MEDS: ENOXAPARIN 40 MG/0.4 ML SQ SCH (21:17)
[2019-11-05] MEDS ORDERED: LISI10TA2 PO (23:44)
[2019-11-06 03:23] VITALS: BP 131/79
[2019-11-06 05:16] LABS: BASOPHILS # (AUTO) 0.03 x10^3/uL (0-0.1); BASOPHILS % (AUTO) 0 % (0-1); EOSINOPHILS # (AUTO) 0.12 x10^3/uL (0-0.4); EOSINOPHILS % (AUTO) 1 % (1-7); LYMPHOCYTES # (AUTO) 2.55 x10^3/uL (1-3.4); LYMPHOCYTES % (AUTO) 29 % (22-44); MD NO; MEAN CORPUSCULAR HGB CONC 33.2 g/dL (33.2-36.2); MEAN PLATELET VOLUME 8.8 fL (7.4-10.4); MONOCYTES # (AUTO) 0.68 x10^3/uL (0.2-0.8); MONOCYTES % (AUTO) 8 % (2-9); NEUTROPHILS # (AUTO) 5.49 x10^3/uL (1.8-6.8); NEUTROPHILS % (AUTO) 62 % (42-75); PLATELET COUNT 250 x10^3/uL (130-400); RED BLOOD COUNT 5.86 x10^6/uL (4.38-5.82); RED CELL DISTRIBUTION WIDTH 15.3 % (9.4-14.8)
[2019-11-06 05:18] LABS: ANION GAP 6 mmol/L (5-15); CALCIUM 8.8 mg/dL (8.5-10.1); CHLORIDE 108 mmol/L (98-107)
[2019-11-06 05:29] LABS: CREATININE 1.22 mg/dL (0.7-1.3)
[2019-11-06 07:16] VITALS: BP 135/85
[2019-11-06] MEDS: FAMOTIDINE 20 MG TABLET PO SCH (09:00)
[2019-11-06] MEDS: LISINOPRIL 10 MG TABLET PO SCH (10:55)
[2019-11-06] MEDS: FUROSEMIDE 40 MG TABLET PO SCH ×2 (10:55→21:00)
[2019-11-06 13:50] VITALS: BP 131/83
[2019-11-06 18:53] VITALS: BP 147/89
[2019-11-06] MEDS: FAMOTIDINE 10 MG TAB PO SCH (21:05)
[2019-11-06] MEDS: ENOXAPARIN 40 MG/0.4 ML SQ SCH (21:06)
[2019-11-07 00:42] VITALS: BP 112/67
[2019-11-07 05:46] LABS: ANION GAP 4 mmol/L (5-15); CHLORIDE 110 mmol/L (98-107)
[2019-11-07 05:49] LABS: CREATININE 1.15 mg/dL (0.7-1.3)
[2019-11-07 07:59] VITALS: BP 144/87
[2019-11-07] MEDS: FAMOTIDINE 10 MG TAB PO SCH ×2 (08:47→22:06)
[2019-11-07] MEDS: LISINOPRIL 10 MG TABLET PO SCH (08:49)
[2019-11-07 12:29] VITALS: BP 137/80
[2019-11-07 21:56] VITALS: BP 160/85
[2019-11-07] MEDS: ENOXAPARIN 40 MG/0.4 ML SQ SCH (22:06)
[2019-11-07] MEDS: DOCUSATE 100 MG CAPSULE PO PRN (22:06)
[2019-11-08 01:20] VITALS: BP 138/81
[2019-11-08 06:32] VITALS: BP 152/94
[2019-11-08] MEDS: FAMOTIDINE 10 MG TAB PO SCH ×2 (08:35→21:47)
[2019-11-08] MEDS: LISINOPRIL 10 MG TABLET PO SCH (08:35)
[2019-11-08 12:36] VITALS: BP 183/90
[2019-11-08 19:46] VITALS: BP 156/103
[2019-11-08 21:39] VITALS: BP 151/94
[2019-11-08] MEDS: DOCUSATE 100 MG CAPSULE PO PRN (21:47)
[2019-11-08] MEDS: ENOXAPARIN 40 MG/0.4 ML SQ SCH (21:47)
[2019-11-09] VITALS: BP 138/83
[2019-11-09 05:46] LABS: ANION GAP 4 mmol/L (5-15); CALCIUM 8.9 mg/dL (8.5-10.1); CHLORIDE 112 mmol/L (98-107)
[2019-11-09 05:49] LABS: CREATININE 0.98 mg/dL (0.7-1.3)
[2019-11-09 07:26] VITALS: BP 152/87
[2019-11-09] MEDS: LISINOPRIL 40 MG TABLET PO SCH (09:57)
[2019-11-09] MEDS: FAMOTIDINE 10 MG TAB PO SCH ×2 (09:57→20:43)
[2019-11-09 13:43] VITALS: BP 155/94
[2019-11-09 19:35] VITALS: BP 161/90
[2019-11-09] MEDS: ENOXAPARIN 40 MG/0.4 ML SQ SCH (20:43)
[2019-11-10 01:17] VITALS: BP 151/90
[2019-11-10 06:22] VITALS: BP 161/90
[2019-11-10] MEDS: DOCUSATE 100 MG CAPSULE PO PRN (10:00)
[2019-11-10] MEDS: FAMOTIDINE 10 MG TAB PO SCH ×2 (10:01→19:56)
[2019-11-10] MEDS: LISINOPRIL 40 MG TABLET PO SCH (10:01)
[2019-11-10 13:00] VITALS: BP 165/92
[2019-11-10 19:05] VITALS: BP 155/88
[2019-11-10] MEDS: ENOXAPARIN 40 MG/0.4 ML SQ SCH (19:56)
[2019-11-11 00:49] VITALS: BP 160/87
[2019-11-11 07:14] VITALS: BP 167/94
[2019-11-11] MEDS: FAMOTIDINE 10 MG TAB PO SCH (09:00)
[2019-11-11] MEDS: LISINOPRIL 40 MG TABLET PO SCH (09:19)
[2019-11-11 14:00] VITALS: BP 156/94
[2019-11-11 15:06] VITALS: BP 129/84
[2019-11-11 20:04] VITALS: BP 129/77
[2019-11-11] MEDS: ENOXAPARIN 40 MG/0.4 ML SQ SCH (21:31)
[2019-11-11] MEDS: FAMOTIDINE 20 MG TABLET PO SCH (21:31)
[2019-11-12 00:18] VITALS: BP 133/85
[2019-11-12 07:10] VITALS: BP 135/84
[2019-11-12] MEDS: LISINOPRIL 40 MG TABLET PO SCH (08:22)
[2019-11-12] MEDS: FAMOTIDINE 20 MG TABLET PO SCH ×2 (08:22→20:48)
[2019-11-12 13:15] VITALS: BP 147/80
[2019-11-12 19:52] VITALS: BP 123/75
[2019-11-12] MEDS: ENOXAPARIN 40 MG/0.4 ML SQ SCH (20:48)
[2019-11-13 01:02] VITALS: BP 138/93
[2019-11-13 07:39] VITALS: BP 145/85
[2019-11-13] MEDS: DOCUSATE 100 MG CAPSULE PO PRN ×2 (08:55→21:55)
[2019-11-13] MEDS: FAMOTIDINE 20 MG TABLET PO SCH ×2 (08:55→21:55)
[2019-11-13] MEDS: LISINOPRIL 40 MG TABLET PO SCH (08:55)
[2019-11-13 13:57] VITALS: BP 126/64
[2019-11-13 19:29] VITALS: BP 126/78
[2019-11-13] MEDS: ENOXAPARIN 40 MG/0.4 ML SQ SCH (21:55)
[2019-11-14 01:24] VITALS: BP 119/74
[2019-11-14 07:11] VITALS: BP 126/78
[2019-11-14] MEDS: FAMOTIDINE 20 MG TABLET PO SCH ×2 (08:23→22:31)
[2019-11-14] MEDS: LISINOPRIL 40 MG TABLET PO SCH (08:23)
[2019-11-14 14:00] VITALS: BP 125/78
[2019-11-14 20:24] VITALS: BP 149/88
[2019-11-14] MEDS: ENOXAPARIN 40 MG/0.4 ML SQ SCH (22:31)
[2019-11-15 01:04] VITALS: BP 156/98
[2019-11-15 06:39] LABS: BASOPHILS # (AUTO) 0.02 x10^3/uL (0-0.1); BASOPHILS % (AUTO) 0 % (0-1); EOSINOPHILS # (AUTO) 0.08 x10^3/uL (0-0.4); EOSINOPHILS % (AUTO) 1 % (1-7); LYMPHOCYTES # (AUTO) 2.46 x10^3/uL (1-3.4); LYMPHOCYTES % (AUTO) 31 % (22-44); MD NO; MEAN CORPUSCULAR HGB CONC 33.2 g/dL (33.2-36.2); MEAN PLATELET VOLUME 8.9 fL (7.4-10.4); MONOCYTES # (AUTO) 0.58 x10^3/uL (0.2-0.8); MONOCYTES % (AUTO) 7 % (2-9); NEUTROPHILS # (AUTO) 4.78 x10^3/uL (1.8-6.8); NEUTROPHILS % (AUTO) 60 % (42-75); PLATELET COUNT 230 x10^3/uL (130-400); RED BLOOD COUNT 6.03 x10^6/uL (4.38-5.82); RED CELL DISTRIBUTION WIDTH 15.3 % (9.4-14.8)
[2019-11-15 07:03] LABS: ANION GAP 5 mmol/L (5-15); CALCIUM 8.6 mg/dL (8.5-10.1); CHLORIDE 111 mmol/L (98-107)
[2019-11-15 07:04] LABS: CREATININE 1.15 mg/dL (0.7-1.3)
[2019-11-15 07:33] VITALS: BP 132/72
[2019-11-15] MEDS: LISINOPRIL 40 MG TABLET PO SCH (12:02)
[2019-11-15] MEDS: FAMOTIDINE 20 MG TABLET PO SCH ×2 (12:02→23:31)
[2019-11-15 13:13] VITALS: BP 138/82
[2019-11-15 19:00] VITALS: BP 145/78
[2019-11-15] MEDS: ENOXAPARIN 40 MG/0.4 ML SQ SCH (23:31)
[2019-11-16 00:46] VITALS: BP 129/81
[2019-11-16] MEDS: LISINOPRIL 40 MG TABLET PO SCH (08:01)
[2019-11-16] MEDS: FAMOTIDINE 20 MG TABLET PO SCH ×2 (08:01→20:38)
[2019-11-16 08:58] VITALS: BP 137/72
[2019-11-16 14:26] VITALS: BP 128/80
[2019-11-16 18:59] VITALS: BP 149/88
[2019-11-16] MEDS: ENOXAPARIN 40 MG/0.4 ML SQ SCH (23:08)
[2019-11-17 00:57] VITALS: BP 148/87
[2019-11-17 07:17] VITALS: BP 132/79
[2019-11-17] MEDS: LISINOPRIL 40 MG TABLET PO SCH (09:21)
[2019-11-17] MEDS: FAMOTIDINE 20 MG TABLET PO SCH ×2 (09:21→20:43)
[2019-11-17 12:56] VITALS: BP 148/85
[2019-11-17 20:43] VITALS: BP 127/70
[2019-11-17] MEDS: ENOXAPARIN 40 MG/0.4 ML SQ SCH (23:21)
[2019-11-18 00:30] VITALS: BP 128/78
[2019-11-18 07:36] VITALS: BP 147/90
[2019-11-18] MEDS: FAMOTIDINE 20 MG TABLET PO SCH ×2 (08:39→22:05)
[2019-11-18] MEDS: LISINOPRIL 40 MG TABLET PO SCH (08:39)
[2019-11-18 13:09] VITALS: BP 126/76
[2019-11-18 19:44] VITALS: BP 123/77
[2019-11-18] MEDS: ENOXAPARIN 40 MG/0.4 ML SQ SCH (22:37)
[2019-11-19 00:43] VITALS: BP 130/76
[2019-11-19 05:44] LABS: CREATININE 0.96 mg/dL (0.7-1.3)
[2019-11-19 07:50] VITALS: BP 134/74
[2019-11-19] MEDS: LISINOPRIL 40 MG TABLET PO SCH (09:43)
[2019-11-19] MEDS: FAMOTIDINE 20 MG TABLET PO SCH ×2 (09:43→21:45)
[2019-11-19 13:12] VITALS: BP 131/80
[2019-11-19 19:16] VITALS: BP 128/79
[2019-11-19] MEDS: ENOXAPARIN 40 MG/0.4 ML SQ SCH (23:00)
[2019-11-20 01:55] VITALS: BP 115/72
[2019-11-20 07:52] VITALS: BP 140/82
[2019-11-20] MEDS: FAMOTIDINE 20 MG TABLET PO SCH ×2 (09:34→21:10)
[2019-11-20] MEDS: LISINOPRIL 40 MG TABLET PO SCH (09:35)
[2019-11-20 13:58] VITALS: BP 117/75
[2019-11-20 20:14] VITALS: BP 129/75
[2019-11-20] MEDS: ENOXAPARIN 40 MG/0.4 ML SQ SCH (23:19)
[2019-11-21 01:31] VITALS: BP 97/60
[2019-11-21 06:39] VITALS: BP 110/71
[2019-11-21] MEDS: LISINOPRIL 40 MG TABLET PO SCH (08:02)
[2019-11-21] MEDS: FAMOTIDINE 20 MG TABLET PO SCH ×2 (08:02→20:21)
[2019-11-21 13:25] VITALS: BP 135/80
[2019-11-21 20:22] VITALS: BP 138/81
[2019-11-21 20:47] VITALS: BP 135/77
[2019-11-21] MEDS: ENOXAPARIN 40 MG/0.4 ML SQ SCH (23:11)
[2019-11-22 00:01] VITALS: BP 132/76
[2019-11-22 07:33] VITALS: BP 138/84
[2019-11-22] MEDS: FAMOTIDINE 20 MG TABLET PO SCH ×2 (08:35→20:27)
[2019-11-22] MEDS: LISINOPRIL 40 MG TABLET PO SCH (08:35)
[2019-11-22 13:06] VITALS: BP 138/75
[2019-11-22 20:15] VITALS: BP 149/90
[2019-11-22] MEDS: ENOXAPARIN 40 MG/0.4 ML SQ SCH (22:46)
[2019-11-23 02:08] VITALS: BP 134/81
[2019-11-23 07:57] VITALS: BP 135/87
[2019-11-23] MEDS: FAMOTIDINE 20 MG TABLET PO SCH ×2 (08:16→20:08)
[2019-11-23] MEDS: LISINOPRIL 40 MG TABLET PO SCH (08:16)
[2019-11-23 13:08] VITALS: BP 109/67
[2019-11-23 20:31] VITALS: BP 132/82
[2019-11-23] MEDS: ENOXAPARIN 40 MG/0.4 ML SQ SCH (23:06)
[2019-11-24 01:10] VITALS: BP 153/84
[2019-11-24 08:40] VITALS: BP 146/84
[2019-11-24] MEDS: LISINOPRIL 40 MG TABLET PO SCH (12:16)
[2019-11-24] MEDS: FAMOTIDINE 20 MG TABLET PO SCH ×2 (12:16→20:24)
[2019-11-24 14:02] VITALS: BP 137/79
[2019-11-24] MEDS ORDERED: LISI40TA PO (15:11)
[2019-11-24 19:21] VITALS: BP 144/93
[2019-11-25] MEDS: ENOXAPARIN 40 MG/0.4 ML SQ SCH ×2 (00:41→19:39)
[2019-11-25 01:17] VITALS: BP 129/77
[2019-11-25 07:18] VITALS: BP 156/83
[2019-11-25] MEDS: LISINOPRIL 40 MG TABLET PO SCH (09:38)
[2019-11-25] MEDS: FAMOTIDINE 20 MG TABLET PO SCH ×2 (09:38→19:39)
[2019-11-25 12:54] VITALS: BP 116/72
[2019-11-25 18:25] VITALS: BP 143/77
[2019-11-26 00:24] VITALS: BP 143/74
[2019-11-26 05:55] LABS: CREATININE 1.11 mg/dL (0.7-1.3)
[2019-11-26 08:16] VITALS: BP 132/83
[2019-11-26] MEDS: LISINOPRIL 40 MG TABLET PO SCH (08:54)
[2019-11-26] MEDS: FAMOTIDINE 20 MG TABLET PO SCH ×2 (08:54→21:43)
[2019-11-26 14:56] VITALS: BP 129/72
[2019-11-26 21:41] VITALS: BP 137/86
[2019-11-26] MEDS: ENOXAPARIN 40 MG/0.4 ML SQ SCH (21:43)
[2019-11-27 01:00] VITALS: BP 131/81
[2019-11-27] MEDS: LISINOPRIL 40 MG TABLET PO SCH (09:27)
[2019-11-27] MEDS: FAMOTIDINE 20 MG TABLET PO SCH (09:27)
[2019-11-27] MEDS: ENOXAPARIN 40 MG/0.4 ML SQ SCH (09:28)
[2019-11-27 09:50] VITALS: BP 131/87
[2019-11-27 13:20] VITALS: BP 147/84
== END 2019-11-27 13:49 | disposition home or self-care (01) | DRG 93 ==
LOC: ED 15:54 → EDIP 19:02 → 3N 20:24 → DCLOUNGE 11-27 13:35
PROVIDERS: ADMIT Internal Medicine; ATTEND Hospitalist
DX: G14 Postpolio syndrome (principal); R22.43 Localized swelling, mass and lump, lower limb, bilateral; R62.7 Adult failure to thrive; I10 Essential (primary) hypertension; D72.829 Elevated white blood cell count, unspecified; E87.8 Other disorders of electrolyte and fluid balance, not elsewhere classified; F17.210 Nicotine dependence, cigarettes, uncomplicated; G89.29 Other chronic pain; F44.4 Conversion disorder with motor symptom or deficit; Z20.828 Contact with and (suspected) exposure to other viral communicable diseases; M51.37 Other intervertebral disc degeneration, lumbosacral region; D75.1 Secondary polycythemia; M54.9 Dorsalgia, unspecified; Z99.3 Dependence on wheelchair; Z80.8 Family history of malignant neoplasm of other organs or systems; Z83.3 Family history of diabetes mellitus; Z79.899 Other long term (current) drug therapy; M47.9 Spondylosis, unspecified; J44.9 Chronic obstructive pulmonary disease, unspecified; E80.6 Other disorders of bilirubin metabolism
CPT/HCPCS: 36415; 71045; 72110; 80048; 80053; 82565; 84443; 84484; 85025; 86480; 87635; 93005; G0378; J1650; J1940

== ENCOUNTER 2020-03-18 12:58 | Emergency (ER) | payer MEDICARE, MEDICAID ==
[~2020-03-18] VITALS: Ht 162.6 cm; Wt 74.0 kg
[~2020-03-18 12:58] MED LIST changes: +LISI10TA2 PO; +LISI40TA PO
[2020-03-18 14:16] LABS: BASOPHILS % (AUTO) 0 % (0-1); EOSINOPHILS % (AUTO) 1 % (1-7); LYMPHOCYTES % (AUTO) 20 % (22-44); MEAN CORPUSCULAR HEMOGLOBIN 31.4 pg (27.5-34.5); MEAN CORPUSCULAR HGB CONC 34.2 g/dL (33.2-36.2); MEAN PLATELET VOLUME 8.3 fL (7.4-10.4); MONOCYTES % (AUTO) 8 % (2-9); NEUTROPHILS % (AUTO) 70 % (42-75); PLATELET COUNT 288 x10^3/uL (130-400); RED BLOOD COUNT 6.08 x10^6/uL (4.38-5.82); RED CELL DISTRIBUTION WIDTH 15.1 % (9.4-14.8)
[2020-03-18 14:25] LABS: ALBUMIN 3.5 g/dL (3.4-5.0); ANION GAP 4 mmol/L (5-15); CHLORIDE 111 mmol/L (98-107); CREATININE 1.01 mg/dL (0.7-1.3)
[2020-03-18 14:39] LABS: ALANINE AMINOTRANSFERASE 36 U/L (12-78); ALKALINE PHOSPHATASE 129 U/L (45-117); BILIRUBIN,TOTAL 0.8 mg/dL (0.2-1.0); TOTAL PROTEIN 7.5 g/dL (6.4-8.2)
[2020-03-18] MEDS ORDERED: FUROSEMIDE 40 MG TABLET ONE (14:51)
[2020-03-18] MEDS ORDERED: FUROSEMIDE 40 MG TABLET PO ONE (15:00)
--- NOTE | 2020-03-18 15:00 | NUR ---
PT STATES HE HAS RUN OUT OF HTN MEDS, AND LASIX FOR 2 WEEKS. PT LEGS ARE BILAT 3+ EDEMA, RED. DENIES CP OR SOB. BP IS 185/107.
[2020-03-18 15:12] LABS: MD NO
[2020-03-18 16:41] VITALS: BP 171/100
--- NOTE | 2020-03-18 16:41 | NUR ---
Patient/Caregiver given discharge instructions and they have confirmed that they understand the instructions. Patient ambulatory with steady gait.
== END 2020-03-18 16:46 | disposition home or self-care (01) ==
LOC: ED 14:37
DX: J44.1 Chronic obstructive pulmonary disease with (acute) exacerbation (principal); Z76.0 Encounter for issue of repeat prescription; I45.10 Unspecified right bundle-branch block; I44.4 Left anterior fascicular block; I11.9 Hypertensive heart disease without heart failure; R94.31 Abnormal electrocardiogram [ECG] [EKG]; F17.200 Nicotine dependence, unspecified, uncomplicated
CPT/HCPCS: 36415; 71045; 80053; 83880; 85025; 93005; 99285